=== PATIENT | male | born 1980 | race Caucasian/White ===

== ENCOUNTER 2020-09-11 16:21 | Emergency (ER) | payer BC, SELFPAY ==
--- NOTE | 2020-09-11 20:15 | RAD REPORT ---
EXAM DESCRIPTION: CT - Thorax Wo Con - 09/11/2020 7:54 pm CLINICAL HISTORY: Chest pain COMPARISON: none TECHNIQUE: Computed axial tomography of the chest was obtained. Contrast was not requested. All CT scans are performed using dose optimization technique as appropriate and may include automated exposure control or mA/KV adjustment according to patient size. FINDINGS: The evaluation of mediastinum, siobhan and vessels is limited secondary to lack of IV contras t administration. The lungs are clear. No mediastinal or hilar lymphadenopathy is seen. A pleural effusion is not present. No pericardial effusion IMPRESSION: Unremarkable examination
--- NOTE | 2020-09-11 20:18 | RAD REPORT ---
EXAM DESCRIPTION: CT - Abdomen Wo Contrast - 09/11/2020 7:55 pm CLINICAL HISTORY: Abdominal pain COMPARISON: None TECHNIQUE: Computed axial tomography from the diaphragm to the iliac crest was obtained. Oral contra st was given. IV contrast was not requested. All CT scans are performed using dose optimization technique as appropriate and may include automated exposure control or mA/KV adjustment according to patient size. FINDINGS: The evaluation of solid organs and vessels is limited secondary to the lack of IV contrast administration. Fatty liver Spleen, adrenals, pancreas and kidneys appear grossly normal. Normal appendix The visualized bowel caliber and wall thickness is normal IMPRESSION: Fatty liver
--- NOTE | 2020-09-11 20:35 | EDPHYS ---
Physician Documentation [facility] Name: Chin Jaeger Age: 39 yrs Sex: Male : 1980 Arrival Date: 09/11/2020 Time: 16:24 Bed 6 Private MD: ED Physician oRnald Eaton HPI: 09/11 20:45 This 39 yrs old Male presents to ER via Ambulatory with complaints of L Side kb Pain. 20:44 The patient has not recently seen a physician. kb 20:45 The patient or guardian reports chest pain that is located primarily in the anterior kb aspect of left lateral abdomen. The pain does not radiate. Associated signs and symptoms: Pertinent positives: sneezing. The chest pain is described as sharp. Duration: The patient or guardian reports multiple episodes, that are intermittent, only with sneezing or cough. Modifying factors: The symptoms are alleviated by remaining still, the symptoms are aggravated by cough, sneezing. Severity of pain: At its worst the pain was moderate in the emergency department the pain is unchanged. The patient has not experienced similar symptoms in the past. point tenderness to left lower lateral chest. Pain reproducible with palpation, sneezing and coughing. Started 2 days ago. Historical: - Allergies: 16:52 No Known Allergies; ll1 - PMHx: 16:52 low testosterone; fatty liver; ll1 - PSHx: 16:52 None; ll1 - Immunization history:: Client reports having NOT received the Covid vaccine. Flu vaccine is not up to date. - Social history:: Smoking status: Patient reports the use of cigarette tobacco products, smokes one-half pack cigarettes per day. ROS: 20:14 Constitutional: Negative for fever, chills, and weight loss, Respiratory: Negative for kb shortness of breath, cough, wheezing, and pleuritic chest pain, MS/Extremity: Negative for injury and deformity, Skin: Negative for injury, rash, and discoloration, Neuro: Negative for headache, weakness, numbness, tingling, and seizure. 20:14 Cardiovascular: Positive for chest pain, with cough, with movement, of the lower left chest. 20:14 Abdomen/GI: Positive for abdominal pain, of the anterior aspect of left lateral abdomen and left upper quadrant. Exam: 20:44 Constitutional: This is a well developed, well nourished patient who is awake, alert, kb and in no acute distress. Head/Face: Normocephalic, atraumatic. Cardiovascular: Regular rate and rhythm with a normal S1 and S2. No gallops, murmurs, or rubs. No pulse deficits. Respiratory: Respirations even and unlabored. No increased work of breathing, no retractions or nasal flaring. Abdomen/GI: Soft, non-tender. No distention Skin: Warm, dry with normal turgor. Normal color. MS/ Extremity: Pulses equal, no cyanosis. Neurovascular intact. Full, normal range of motion. Neuro: Awake and alert, GCS 15, oriented to person, place, time, and situation. Moves all extremities. Normal gait. 20:44 Chest/axilla: Inspection: normal, Palpation: tenderness, that is moderate, of the left lateral anterior chest, that totally reproduces the patient's complaints, point tenderness near last rib. Vital Signs: 16:48 BP 140 / 93; Pulse 85; Resp 18; Temp 97.7; Pulse Ox 98% ; Weight 124.74 kg; Height 5 ll1 ft. 11 in. (180.34 cm); Pain 4/10; 20:45 BP 135 / 80; Pulse 90; Resp 18; Temp 98; Pulse Ox 100% on R/A; mg2 16:48 Body Mass Index 38.35 (124.74 kg, 180.34 cm) ll1 MDM: 20:01 Patient medically screened. kb 20:14 Data reviewed: vital signs, nurses notes. Data interpreted: Pulse oximetry: on room air kb is 98 %. Interpretation: normal. Counseling: I had a detailed discussion with the patient and/or guardian regarding: the historical points, exam findings, and any diagnostic results supporting the discharge/admit diagnosis, radiology results, the need for outpatient follow up, a family practitioner, to return to the emergency department if symptoms worsen or persist or if there are any questions or concerns that arise at home. 09/11 19:39 Order name: CT Chest Wo Con kb 09/11 20:16 Order name: CT; Complete Time: 20:21 EDMS 09/11 20:18 Order name: CT; Complete Time: 20:21 EDMS Administered Medications: 20:33 Drug: TORadol (ketorolac) 60 mg Route: IM; Site: left deltoid; mg2 20:33 Follow up: Response: No adverse reaction; Medication administered at discharge. mg2 Disposition: 09/12 04:46 Co-signature as Attending Physician, Ronald Eaton MD. rn Disposition: 09/11/20 20:34 Discharged to Home. Impression: Chest pain on breathing - chest wall. - Condition is Stable. - Discharge Instructions: Costochondritis, [id number], Chest Wall Pain, [id number]. - Prescriptions for Ibuprofen 800 mg Oral Tablet - take 1 tablet by ORAL route every 8 hours As needed take with food; 30 tablet. orphenadrine citrate 100 mg Oral Tablet Sustained Release - take 1 tablet by ORAL route 2 times per day As needed; 20 tablet. - Medication Reconciliation Form, Thank You Letter, Antibiotic Education, Prescription Opioid Use form. - Follow up: Emergency Department; When: As needed; Reason: Worsening of condition. Follow up: Private Physician; When: 2 - 3 days; Reason: Recheck today's complaints, Continuance of care, Re-evaluation by your physician. Signatures: Dispatcher [employer] EDCA Maite Polanco, LEAD BURNER SUPERVISOR-C LEAD BURNER SUPERVISOR-Ckb Ronald Eaton MD MD rn Gardose, Michele, RN RN mg2 Alton Cage RN RN ll1 Corrections: (The following items were deleted from the chart) 09/11 20:46 20:34 09/11/2020 20:34 Discharged to Home. Impression: Chest pain on breathing - chest mg2 wall. Condition is Stable. Forms are Medication Reconciliation Form, Thank You Letter, Antibiotic Education, Prescription Opioid Use. Follow up: Emergency Department; When: As needed; Reason: Worsening of condition. Follow up: Private Physician; When: 2 - 3 days; Reason: Recheck today's complaints, Continuance of care, Re-evaluation by your physician. kb
--- NOTE | 2020-09-11 20:35 | ER ---
Nurse's Notes [facility] Name: Chin Jaeger Age: 39 yrs Sex: Male : 1980 Arrival Date: 09/11/2020 Time: 16:24 Bed 6 Private MD: Diagnosis: Chest pain on breathing-chest wall Presentation: 09/11 16:48 Chief complaint: Patient states: Awoke yesterday with L ribs/trunk pain. Sneezed and ll1 the pain got severe. Still has pain with stretching or sneezing again. No cough or fever. Coronavirus screen: Client denies travel out of the [place] in the last 14 days. At this time, the client does not indicate any symptoms associated with coronavirus-19. Ebola Screen: Patient denies travel to an Ebola-affected area in the 21 days before illness onset. Initial Sepsis Screen: Does the patient meet any 2 criteria? No. Patient's initial sepsis screen is negative. Does the patient have a suspected source of infection? Yes: Other: ribs/trunk. Risk Assessment: Do you want to hurt yourself or someone else? Patient reports no desire to harm self or others. Onset of symptoms was September 10, 2020. 16:48 Method Of Arrival: Ambulatory ll1 16:48 Acuity: LAUREN 3 ll1 Historical: - Allergies: 16:52 No Known Allergies; ll1 - PMHx: 16:52 low testosterone; fatty liver; ll1 - PSHx: 16:52 None; ll1 - Immunization history:: Client reports having NOT received the Covid vaccine. Flu vaccine is not up to date. - Social history:: Smoking status: Patient reports the use of cigarette tobacco products, smokes one-half pack cigarettes per day. Screenin:09 Abuse screen: Denies threats or abuse. Denies injuries from another. Nutritional mg2 screening: No deficits noted. Tuberculosis screening: No symptoms or risk factors identified. Fall Risk None identified. Assessment: 20:10 General: Appears in no apparent distress. comfortable, Behavior is calm, cooperative. mg2 Pain: Complains of pain in left side. Neuro: Level of Consciousness is awake, alert, obeys commands, Oriented to person, place, time, situation. Cardiovascular: Capillary refill < 3 seconds Patient's skin is warm and dry. Respiratory: Airway is patent Respiratory effort is even, unlabored, Respiratory pattern is regular, symmetrical. GI: No signs and/or symptoms were reported involving the gastrointestinal system. : No signs and/or symptoms were reported regarding the genitourinary system. EENT: No signs and/or symptoms were reported regarding the EENT system. Derm: Skin is intact, is healthy with good turgor, Skin is pink, warm \T\ dry. normal. Musculoskeletal: Circulation, motion, and sensation intact. Capillary refill < 3 seconds. Vital Signs: 16:48 BP 140 / 93; Pulse 85; Resp 18; Temp 97.7; Pulse Ox 98% ; Weight 124.74 kg; Height 5 ll1 ft. 11 in. (180.34 cm); Pain 4/10; 20:45 BP 135 / 80; Pulse 90; Resp 18; Temp 98; Pulse Ox 100% on R/A; mg2 16:48 Body Mass Index 38.35 (124.74 kg, 180.34 cm) ll1 ED Course: 16:24 Patient arrived in ED. ds1 16:51 Triage completed. ll1 16:53 Arm band placed on. ll1 20:01 Maite Polanco FNP-C [facility]. kb 20:01 Ronald Eaton MD is Attending Physician. kb 20:09 Arthur Dominguez, ONEL is Primary Nurse. mg2 20:10 Patient has correct armband on for positive identification. mg2 20:10 No provider procedures requiring assistance completed. mg2 20:45 Patient did not have IV access during this emergency room visit. mg2 Administered Medications: 20:33 Drug: TORadol (ketorolac) 60 mg Route: IM; Site: left deltoid; mg2 20:33 Follow up: Response: No adverse reaction; Medication administered at discharge. mg2 Outcome: 20:34 Discharge ordered by . kb 20:46 Discharged to home ambulatory. mg2 20:46 Condition: stable 20:46 Discharge instructions given to patient, Instructed on discharge instructions, follow up and referral plans. medication usage, Demonstrated understanding of instructions, follow-up care, medications, Prescriptions given X 2. 20:46 Patient left the ED. mg2 Signatures: Maite Polanco FNP-C SOCIAL SCIENCE MANAGER-CkTrish Brown ds1 Arthur Dominguez RN RN [facility] Alton Cage RN RN [facility]
[2020-09-11] MEDS ORDERED: KETOROLAC 30 MG/ML INJ ONE (20:49)
[2020-09-11 20:54] VITALS: BP 135/80; TEMP 98; O2SAT 100
== END 2020-09-11 20:46 | disposition home or self-care (01) ==
LOC: ER 16:21
DX: R07.1 Chest pain on breathing (principal); F17.210 Nicotine dependence, cigarettes, uncomplicated
CPT/HCPCS: 71250; 74150; 96372; 99283